=== PATIENT | male | born 1980 | race Caucasian/White ===

== ENCOUNTER 2020-01-18 12:27 | Emergency (ER) | payer SELFPAY ==
[~2020-01-18] VITALS: Ht 175.3 cm; Wt 79.4 kg
--- NOTE | 2020-01-18 12:27 | NUR ---
JEANNE BURNS TO CHAIR A
[2020-01-18 12:29] VITALS: BP 198/100
--- NOTE | 2020-01-18 12:35 | NUR ---
39 Y/O MALE BIB [facility] FOR MEDICAL CLEARANCE. PER PD PT HAD INCREASED BP. DENIES HEADACHE/BLURRED VISION. DENIES ANY PAIN AT THIS TIME. DOES NOT REPORT TAKING ANY MEDICATIONS REGULARLY MEDHX: DENIES
[2020-01-18] MEDS ORDERED: HYDROCHLOROTHIAZIDE 25 MG TAB PO ONE (12:50)
--- NOTE | 2020-01-18 13:02 | NUR ---
CALLED PHARMACY FOR MED
--- NOTE | 2020-01-18 13:45 | NUR ---
BP RE-EVALUATED BY ERMD
[2020-01-18 14:00] VITALS: BP 186/97
--- NOTE | 2020-01-18 14:00 | NUR ---
Patient discharged with v/s stable. Written and verbal after care instructions given and explained. Patient alert, oriented and verbalized understanding of instructions. Police with steady gait. All questions addressed prior to discharge. ID band removed. Patient advised to follow up with PMD. Rx of HYDROCHLOROTHIAZIDE given. Patient educated on indication of medication including possible reaction and side effects. Opportunity to ask questions provided and answered.
== END 2020-01-18 14:00 ==
LOC: MED 12:27
DX: I10 Essential (primary) hypertension (principal)
CPT/HCPCS: 99283